=== PATIENT | male | born 1970 | race Caucasian/White ===

== ENCOUNTER 2024-07-29 19:43 | Day surgery (SDC) | payer BC, SELFPAY ==
[2024-07-29] VITALS (7 sets, daily range): BP systolic 158–177; BP diastolic 82–87; PULSE 91–98; RESP 16; TEMP 36.8–38.3; O2SAT 95–100; BMI 28.9
--- NOTE | 2024-07-29 20:29 | ED_ITS ---
HPI - General Adult General Chief complaint: Unspecified Complaint, Adult Stated complaint: difficulty swallowing Time Seen by Provider: 07/29/24 20:26 History of Present Illness HPI narrative: pt reports not being able to swallow. Reports neck pain, hurts when touch. Was able to eat last night. Progressively getting worse. Not able to eat or swallow. Ibuprofen taken this morning, 1 tablet and was not able to get anymore down. Pt reports no difficulty breathing. 53-year-old man here with concern of difficulty swallowing. Is also experiencing increasing pain even to light touch of the neck. Was on a flight today and in the airport with the sensation of tightness or difficulty swallowing he was not saying anything on the flight and then in the airport do had a take very tiny sips of orange juice. He is may be able to for stone small amount of sputum. Trying to take a drink though seems to go up now he says. Not had any fever. He does not really have a sore throat in the typical way either. In no concern of exposures. He does not think that he has got anything retained in the esophagus. Is not having trouble breathing. No allergies. It has been suggested that his voice is changed and now he sounds like Joseluis White. Related Data Home Medications ?Medication ?Instructions ?Recorded ?Confirmed No Known Home Medications 07/29/24 07/29/24 Allergies Allergy/AdvReac Type Severity Reaction Status Date / Time No Known Drug Allergies Allergy Verified 07/29/24 21:03 Review of Systems Status of ROS: Reports: 6 or more systems reviewed and unremarkable except as noted in History and below Exam Narrative: Exam Narrative: Deeper timbre voice. Thick. No stridor. Oropharyngeal exam is actually unremarkable. He opens the posterior oropharynx very wide. Epiglottis is not visualized on initial exam. No inflammation. No asymmetry. No swelling noted. He does have good range of motion with his neck though notes a general sense of tightness. Sensitive even to light touch in the scalene musculature bilaterally and about the trachea. Lungs are clear. Heart is in elevated rate with regular rhythm. No murmur rub or gallop. Skin is warm and dry without rash. Well- perfused. Apparent edema. Const: Vital Signs, click to edit/add: Vital Signs - 24 hr 07/29/24 19:47 07/29/24 21:45 07/29/24 22:42 Temperature 98.3 F 100.9 F H Pulse Rate 95 Pulse Rate [Left P ulse Oximeter] 98 95 Respiratory Rate 16 Blood Pressure Blood Pressure [Ri ght Upper Arm] 177/82 H Pulse Oximetry 98 95 100 Oxygen Delivery Me thod Room Air Room Air 07/29/24 22:45 07/29/24 22:49 Temperature Pulse Rate 95 91 Pulse Rate [Left P ulse Oximeter] Respiratory Rate Blood Pressure 158/87 H Blood Pressure [Ri ght Upper Arm] Pulse Oximetry 100 100 Oxygen Delivery Me thod Documenting provider has reviewed patient's vital signs: yes Course Vital Signs Vital signs: Initial Vital Signs Temperature 98.3 F 07/29/24 19:47 Temperature Source Temporal Artery Scan 07/29/24 19:47 Pulse Rate 98 07/29/24 19:47 Pulse Rhythm Regular 07/29/24 19:47 Respiratory Rate 16 07/29/24 19:47 Blood Pressure 177/82 H 07/29/24 19:47 Blood Pressure Mean 113 H 07/29/24 19:47 Blood Pressure Position Sitting 07/29/24 19:47 Pulse Oximetry 98 07/29/24 19:47 Oxygen Delivery Method Room Air 07/29/24 19:47 Vital Signs Temperature 98.3 F 07/29/24 19:47 Pulse Rate 98 07/29/24 19:47 Respiratory Rate 16 07/29/24 19:47 Blood Pressure 177/82 H 07/29/24 19:47 Pulse Oximetry 98 07/29/24 19:47 Oxygen Delivery Method Room Air 07/29/24 19:47 Temperature 100.9 F H 07/29/24 21:45 Pulse Rate 91 07/29/24 22:49 Respiratory Rate 16 07/29/24 19:47 Blood Pressure 158/87 H 07/29/24 22:49 Pulse Oximetry 100 07/29/24 22:49 Oxygen Delivery Method Room Air 07/29/24 21:45 Medications Administered Medications: Discontinued Medications Generic Name Dose Route Start Last Admin Trade Name Freq PRN Reason Stop Dose Admin Diphenhydramine HCl 50 mg 07/29/24 21:46 07/29/24 22:04 Diphenhydramine 50 Mg/Ml Inj IVP 07/29/24 21:47 50 mg ONCE ONE Administration Epinephrine 0.5 ml 07/29/24 21:47 07/29/24 22:16 Racepinephrine Hcl 0.5 Ml Vial.Neb NEB 07/29/24 21:48 0.5 ml ONCE ONE Administration Sodium Chloride 1,000 mls @ 1,000 mls/hr 07/29/24 20:47 07/29/24 21:47 0.9 % Sodium Chloride 1000 Ml IV 07/29/24 21:46 Infused .Q1H ONE Infusion Ampicillin Sodium/Sulbactam 100 mls @ 200 mls/hr 07/29/24 21:46 07/29/24 22:57 Sodium 3 gm/ Sodium Chloride IVPB 07/29/24 21:47 200 mls/hr ONCE ONE Administration Sodium Chloride 1,000 mls @ 1,000 mls/hr 07/29/24 21:48 07/29/24 22:46 0.9 % Sodium Chloride 1000 Ml IV 07/29/24 22:47 Infused .Q1H ONE Infusion Methylprednisolone Sodium Succinate 125 mg 07/29/24 21:46 07/29/24 22:04 Methylprednisolone Sod Succ 62.5 Mg/Ml (125) IVP 07/29/24 21:47 125 mg ONCE ONE Administration Medical Decision Making MDM Narrative Medical decision making narrative: My sense of this is seems to be less infectious in more just to some tight/has any musculature and now with a dysphagia of unclear etiology otherwise. Will need though to scan his neck looking for other etiology or certainly infection or masses can present atypically. Unclear whether not an allergy may have triggered this. Does not appear to be a foreign body issue. Did discuss initially with ENT. In agreement as above. Initiated on normal saline IV. Nothing for pain or nausea needed. COMPARISON: None available at this institution. FINDINGS: Extensive, severe thickening of the epiglottis and supraglottic larynx. There is moderate mass effect upon the upper airway. No drainable fluid collection identified. The nasopharynx and oropharynx appear unremarkable. The parotid and submandibular glands appear unremarkable. The thyroid gland is normal. Enlarged cervical chain lymph nodes, presumed reactive. The visualized major vascular structures appear intact. The visualized intracranial components appear grossly intact. Visualized orbits and contents appear unremarkable. The paranasal sinuses are clear as visualized. Lung apices are clear. Moderate spondylosis of the cervical spine. IMPRESSION: 1. Severe supraglottitis, with moderate mass effect upon the upper airway. 2. No discrete drainable fluid collection. 3. Presumed reactive cervical chain lymphadenopathy. Labs are somewhat reassuring though with white count at 13.3 and the CRP of 4.4. Reviewed CT images myself and discussed with ENT. Will be assembling team to take over his airway with concern of pending further compromise. Will also need a secure airway for transport. Will not be able to care for severe epiglottitis at this facility. Remains vitally well. Temperature though has gone up to 100.9. Does report feeling a little bit better with IV fluids, received make epinephrine, Solu-Medrol, diphenhydramine. Anesthesia support is already present. ENT on the way. We have obtained acceptance to an ICU bed at [facility]. Following intubation will be transferred. To OR for cares at this time Lab Data Lab results reviewed: Yes I reviewed the patient's lab results Labs: Lab Results 07/29/24 Range/Units 21:00 WBC 13.33 H (4.50-11.00) K/uL RBC 5.02 (4.30-5.90) m/uL Hgb 15.4 (13.5-17.5) gm/dL Hct 44.2 (37.0-53.0) % MCV 88 (80-100) fL MCH 31 (26-34) pg MCHC 35 (32-36) gm/dL RDW Coeff of Conor 12.1 (11.5-15.5) % Plt Count 157 (140-440) K/uL Neut % (Auto) 86.2 H (42.0-72.0) % Lymph % (Auto) 6.9 L (20-44) % Woodward % (Auto) 6.5 (0.0-11.0) % Eos % (Auto) 0.1 (0.0-7.0) % Baso % (Auto) 0.1 (0.0-3.0) % Neut # (Auto) 11.50 H (1.7-7.0) K/uL Lymph # (Auto) 0.90 (0.90-2.90) K/uL Woodward # (Auto) 0.90 (0.00-0.90) K/UL Eos # (Auto) 0.00 (0.00-0.50) K/uL Baso # (Auto) 0.00 (0.00-0.30) K/uL Abs Immat Gran (auto) 0.00 (0.00-0.30) K/uL Imm/Tot Granulo (auto) 0.2 % C-Reactive Protein 4.4 H (0.5-1.0) mg/dL Group A Strep DNA NOT DETECTED (Not Detectd) Discharge Plan Discharge Clinical Impression: Acute epiglottitis Patient Disposition: [facility] Discharge Location: [facility] Condition: Guarded
--- NOTE | 2024-07-29 20:47 | CRLHL7_ITS ---
For Patients: As a result of the Century Cures Act, medical imaging exams and procedure reports are released immediately into your electronic medical record. You may view this report before your referring provider. If you have questions, please contact your health care provider. INDICATION: Neck pain. Difficulty swallowing. TECHNIQUE: CT of the neck soft tissues performed with IV contrast. Contrast: 110 cc Isovue 370 COMPARISON: None available at this institution. FINDINGS: Extensive, severe thickening of the epiglottis and supraglottic larynx. There is moderate mass effect upon the upper airway. No drainable fluid collection identified. The nasopharynx and oropharynx appear unremarkable. The parotid and submandibular glands appear unremarkable. The thyroid gland is normal. Enlarged cervical chain lymph nodes, presumed reactive. The visualized major vascular structures appear intact. The visualized intracranial components appear grossly intact. Visualized orbits and contents appear unremarkable. The paranasal sinuses are clear as visualized. Lung apices are clear. Moderate spondylosis of the cervical spine. IMPRESSION: 1. Severe supraglottitis, with moderate mass effect upon the upper airway. 2. No discrete drainable fluid collection. 3. Presumed reactive cervical chain lymphadenopathy. Please note that all CT scans at this facility use dose modulation, iterative reconstruction, and/or weight-based dosing when appropriate to reduce radiation dose to as low as reasonably achievable. Dictated by Cesar Solomon MD @ 07/29/2024 9:30:34 PM (Electronically Signed)
[2024-07-29 21:09] LABS: Basophils Percent Auto 0.1 % (0.0-3.0); Eosinophils Percent Auto 0.1 % (0.0-7.0); Hematocrit 44.2 % (37.0-53.0); Hemoglobin* 15.4 gm/dL (13.5-17.5); Immature Granulocytes Pct Auto 0.2 %; Lymphocytes Percent Auto 6.9 % (20-44); Mean Corpuscular HGB Conc 35 gm/dL (32-36); Mean Corpuscular Hemoglobin 31 pg (26-34); Mean Corpuscular Volume 88 fL (80-100); Monocytes Percent Auto 6.5 % (0.0-11.0); Neutrophils Percent Auto 86.2 % (42.0-72.0); Platelet Count* 157 K/uL (140-440); RDW Coefficient of Variation % 12.1 % (11.5-15.5); Red Blood Count 5.02 m/uL (4.30-5.90); White Blood Count* 13.33 K/uL (4.50-11.00)
[2024-07-29 21:10] LABS: Slide Review Reflex No
[2024-07-29] MEDS: 0.9 % SODIUM CHLORIDE 1000 ml 1,000 ML IV ×2 (21:10→21:30)
[2024-07-29 21:33] LABS: Strep A DNA Probe* NOT DETECTED (Not Detectd)
[2024-07-29 21:34] LABS: C Reactive Protein* 4.4 mg/dL (0.5-1.0)
[2024-07-29] MEDS: METHYLPREDNISOLONE SOD SUCC 62.5 MG/ML (125) 125 MG IVP (22:04)
[2024-07-29] MEDS: diphenhydrAMINE 50 MG/ML inj IVP (22:04)
[2024-07-29] MEDS: RACEPINEPHRINE HCL 0.5 ML VIAL.NEB NEB (22:16)
[2024-07-29] MEDS: AMPICILLIN/SULBACTAM 3 GM in 0.9 % SODIUM CHLORIDE Mini-bag 100 ML IVPB (22:57)
--- NOTE | 2024-07-30 | CRLHL7_ITS ---
For Patients: As a result of the Century Cures Act, medical imaging exams and procedure reports are released immediately into your electronic medical record. You may view this report before your referring provider. If you have questions, please contact your health care provider. INDICATION: Emergent intubation placement TECHNIQUE: Chest radiograph 1 view COMPARISON: None FINDINGS: The sensitivity and specificity of the exam are moderately limited by the patient`s body habitus. Mediastinum: The endotracheal tube tip is positioned 7.2 cm from the manjit. The heart silhouette is normal in size and morphology. Lung: Mild pulmonary vascular congestion and perihilar atelectasis is noted. No sign of pleural effusion seen. No pneumothorax is identified. Bone and Soft tissue: Unremarkable for age. IMPRESSION: 1. Mild pulmonary vascular congestion and perihilar atelectasis is noted. Dictated by Gilbert Whitley MD @ 07/30/2024 12:46:33 AM Dictated by: Gilbert Whitley MD @ 07/30/2024 00:46:37 (Electronically Signed)
--- NOTE | 2024-07-30 00:41 | PM.ANBPRC ---
Meds Home Medications and Allergies Home Medications ?Medication ?Instructions ?Recorded ?Confirmed ?Type No Known Home Medications 07/29/24 07/29/24 History Allergies Allergy/AdvReac Type Severity Reaction Status Date / Time No Known Drug Allergies Allergy Verified 07/29/24 21:03 Results Labs Labs: Laboratory Results - last 24 hr 07/29/24 21:00 WBC 13.33 H RBC 5.02 Hgb 15.4 Hct 44.2 MCV 88 MCH 31 MCHC 35 RDW Coeff of Conor 12.1 Plt Count 157 Neut % (Auto) 86.2 H Lymph % (Auto) 6.9 L Dickey % (Auto) 6.5 Eos % (Auto) 0.1 Baso % (Auto) 0.1 Neut # (Auto) 11.50 H Lymph # (Auto) 0.90 Dickey # (Auto) 0.90 Eos # (Auto) 0.00 Baso # (Auto) 0.00 Abs Immat Gran (auto) 0.00 Imm/Tot Granulo (auto) 0.2 C-Reactive Protein 4.4 H Group A Strep DNA NOT DETECTED Vital Signs Vital Signs: Last Vital Signs Temp 100.9 F H 07/29/24 21:45 Pulse 93 07/29/24 23:00 Resp 16 07/29/24 19:47 BP 158/87 H 07/29/24 22:49 Pulse Ox 100 07/29/24 23:00 O2 Del Method Non Rebreather Mask 07/29/24 23:00 O2 Flow Rate 10 07/29/24 23:00 Weight: 102.058 kg Height: 187.96 cm Anesthesia Procedures Airway Patient Location: [place] Start Time: 23:10 Stop Time: 00:14 Start Date: 07/29/24 Stop Date: 07/30/24 GASTROENTEROLOGY NURSE: Sathish Rushing CRNA Other Anesthesia Staff: James Kwong CRNA Performed by: NORY Preanesthetic Checklist: IV checked, monitors and equipment checked and pre-op evaluation Difficult Airway: Yes (acute epiglottitis ) Indications for Airway Management: airway protection Spontaneous Ventilation: present Sedation Level: moderate (conscious sedation) Preoxygenated: Yes Patient Position: ramp Mask Difficulty Assessment: 0 - not attempted Final Airway Details: Dr. Mooney, ENT at bedside in OR. 6.0 ETT secured with Glidescope size 4 blade. ETT securement device in place. Transport took pt directly from [place] to [facility]. VSS upon transfer; pt transferred on ventilator (TV 550, RR 25, equal chest rise) Final Airway Type: endotracheal airway Number of Attempts at Approach: 2 Number of Other Approaches Attempted: 1 Dentition Unchanged: No
--- NOTE | 2024-07-30 00:51 | P.ANES_ITS ---
Anesthesia Charges Start Date/Time Anesthesia Start Date: 07/29/24 Anesthesia Start Time: 23:10 Stop Date/Time Anesthesia Stop Date: 07/30/24 Anesthesia Stop Time: 00:14 Summary Emergency: BPM SOLUTION ARCHITECT
--- OUTSIDE RECORDS SUMMARY | 2024-09-22 11:46 | XMS_ITS | Clinical Summary ---
Author Organization [facility] [place], [place] [address] Care Team Providers Care Senior Manager Quality Assurance Name Role Phone Pcp, No Primary Care Provider Unavailabl e Allergies No known active allergies Medications No known medications Encounters Date Type Department Care Team Description 07/29/2024 6:00 PM CDT Office Visit [facility] [id number] [place] [phone] Throat Problem; Dysphagia 07/29/2024 Travel from [...] age to complete this topic Care Teams Senior Manager Quality Assurance Relationship Specialty Start Date End Date Pcp, No . PCP - General 07/29/24
--- OUTSIDE RECORDS SUMMARY | 2024-09-22 11:46 | XMS_ITS | Continuity of Care Document ---
Author Organization [facility] Address [address] [place] [address] Phone Care Team Providers Care Human Resource Intern Name Role Phone No Information Unavailable Unavailable Procedures Procedure Date Office/outpatient visit,[facility] 2008 Advance Directives Directive Yes / No Effective Date File Name No Information Encounters Encounter Description Practice Location Reason(s) For Visit Diagnoses Date Provider Providers Copied on Encounter Z [facility] [place], [address] [place] [address], [address], tel:[phone] No Information 9 No Information Office[facility]pa [facility]ient [facility], [address] [place] [address], [address], [place] tel:[phone] [facility] No Information 9 José Story. [facility] [place], [address], [address], [place], [place], [id number], [place]. tel:[phone] Referring Provider: Jcarlos Le, [facility] [address] [place] [address], [address]. tel:[phone] Family History Family Member Type Diagnosis Age At Onset No Information Payers Payer name Insurance type Covered constitution party ID Authoriza tiortega(s) [facility] [id number] Social History Type Description Quantity Date Captured [...]
== END 2024-07-30 00:16 | disposition other institution (70) ==
LOC: ED 23:01 → SS 09-22 11:43
PROVIDERS: Emergency Provider Family Medicine; PCP Family Medicine; Visit Provider Otolaryngology
PROC: (CPT 31526; principal; 2024-07-29 23:30)
DX: J05.11 Acute epiglottitis with obstruction (principal)
CPT/HCPCS: 31526; 31500; 36415; 70491; 71045; 85025; 86140; 87040; 87070; 87075; 87651; 94640; 96365; 96375; 99140; 99284; 99285; 99291; J0295; J1200; J2250; J2704; J2919; J3010; J3490; J7030; Q9967

== ENCOUNTER 2024-08-06 16:15 | Outpatient (CLI) | payer BC, SELFPAY ==
--- OUTSIDE RECORDS SUMMARY | 2024-08-09 18:25 | XMS_ITS | Clinical Summary ---
Author Organization [facility] Address [place], [place] [address] Care Team Providers Care Destination Sign Repairer Name Role Phone Pcp, No Primary Care Provider Unavailabl e Allergies No known active allergies Medications No known medications Encounters Date Type Department Care Team Description 07/29/2024 6:00 PM CDT Office Visit [facility] [address] [phone] Throat Problem; Dysphagia 07/29/2024 Travel from Last 3 Months Social History Tobacco Use Types Packs/Day Years Used Date Smoking Tobacco: Never Smokeless Tobacco: Never Tobacco Cessation:Counseling Given: Not Answered Sex and Gender Information Value Date Recorded Sex Assigned at Not on file Gender Identity Not on file Sexual Orientation Not on file Travel History Travel Start Travel [place] 07/26/2024 07/29/2024 Obstetrics History Last Filed Vital Signs Vital Sign Reading Time Taken Comments Blood Pressure 155/89 07/29/2024 6:57 PM CDT Pulse 98 07/29/2024 6:57 PM CDT Temperature 36.8 ??C (98.3 ??F) 07/29/2024 6:57 PM CD T Respiratory Rate 16 07/29/2024 6:57 PM CDT Oxygen Saturation 99% 07/29/2024 6:57 PM CDT Inhaled Oxygen Concentration - - Weight - - Height - - Body Mass Index - - Plan of Treatment Health Maintenance Due Date Last Done Comments Tdap 1983 Depression screening for age 12+ 1984 HIV for age 15-65 1987 BMI (ht and wt on same day) for age 18+ 1990 Hepatitis C screening for ag e 18-79 1990 Tetanus booster 1992 Colonoscopy through age 75 2017 Lipids for age 45-75 2017 Zoster (shingles) series for age 50+ (1 of 2) 2022 COVID-19 vaccine series ( - 2023- season) 2024 11/16/2021, 03/03/2021, 02/11/2021 Influenza for age 50-64 07/12/2024 Pneumococcal series for age 6-64 Aged Out No longer eligible b ased on patient's age to complete this topic Care Teams Destination Sign Repairer Relationship Specialty Start Date End Date Pcp, No . PCP - General 07/29/24
--- OUTSIDE RECORDS SUMMARY | 2024-08-09 18:25 | XMS_ITS | Continuity of Care Document ---
Author Organization [facility] Address [address] [place] [address] Phone Care Team Providers Care Facilities Coordinator Name Role Phone No Information Unavailable Unavailable Procedures Procedure Date Office/outpatient visit,[facility] 2008 Advance Directives Directive Yes / No Effective Date File Name No Information Encounters Encounter Description Practice Location Reason(s) For Visit Diagnoses Date Provider Providers Copied on Encounter Z [facility] [place], [address] [place] [address], [address], tel:[phone] No Information 9 No Information Office[facility]pa [facility], [address] [place] [address], [address], [place] tel:[phone] [facility] No Information 9 Joés Story. [facility] [place], [address], [address], [place], [place], [id number], [place]. tel:[phone] Referring Provider: Jcarlos Le, [facility] [address] [place] [address], [address]. tel:[phone] Family History Family Member Type Diagnosis Age At Onset No Information Payers Payer name Insurance type Covered constitution party ID Authoriza tiortega(s) [facility] [id number] Social History Type Description Quantity Date Captured Comments Sex Male Smoking Status No Information Chief Complaint And Reason For Visit No Information Reason For Referral Reason For Referral No Information History Of Present Illness Encounter Date Complaint History Of Prese nt Illness No Information Functional Status Date Functional Assessmen t No Information Instructions Date Instruction Additional Infor mation No Information Assessments Type Assessment Date No Information Patient Care Teams Name Effective Dates (start - stop) Status Members No Information
== END 2024-08-06 16:16 | disposition home or self-care (01) ==
LOC: NFLDREF 08-09 18:23
PROVIDERS: PCP Family Medicine; Referring Provider Family Medicine; Visit Provider Internal Medicine
DX: N39.0 Urinary tract infection, site not specified (principal)
CPT/HCPCS: 87086

== ENCOUNTER 2024-09-10 15:57 | Outpatient (CLI) | payer BC, SELFPAY ==
--- OUTSIDE RECORDS SUMMARY | 2024-09-10 16:02 | XMS_ITS | Clinical Summary ---
Author Organization [facility] Address [place], [place] [address] Care Team Providers Care Resident Care Spec Name Role Phone Pcp, No Primary Care Provider Unavailabl e Allergies No known active allergies Medications No known medications Encounters Date Type Department Care Team Description 07/29/2024 6:00 PM CDT Office Visit [facility] [id number] [place] [phone] Throat Problem; Dysphagia 07/29/2024 Travel from Last 3 Months Social History Tobacco Use Types Packs/Day Years Used Date Smoking Tobacco: Never Smokeless Tobacco: Never Tobacco Cessation:Counseling Given: Not Answered Sex and Gender Information Value Date Recorded Sex Assigned at Not on file Gender Identity Not on file Sexual Orientation Not on file Obstetrics History Last Filed Vital Signs Vital [...] (1 of 2) 2022 COVID-19 vaccine series (2023- season) 2024 11/16/2021, 03/03/2021, 02/11/2021 Influenza for age 50-64 07/12/2024 Pneumococcal series for age 6-64 Aged Out No longer eligible b ased on patient's age to complete this topic Care Teams Resident Care Spec Relationship Specialty Start Date End Date Pcp, No . PCP - General 07/29/24
--- OUTSIDE RECORDS SUMMARY | 2024-09-10 16:02 | XMS_ITS | Continuity of Care Document ---
Author Organization [facility] Address [address] [place] [address] Phone Care Team Providers Care Physical Therapy Professor Name Role Phone No Information Unavailable Unavailable Procedures Procedure Date Office[facility]outpatient visit,[facility] 2008 Advance Directives Directive Yes / No Effective Date File Name No Information Encounters Encounter Description Practice Location Reason(s) For Visit Diagnoses Date Provider Providers Copied on Encounter Z [facility] [place], [address] [place] [address], [address], tel:[phone] No Information 9 No Information Office/outpa tient visit,[facility], [address] [place] [address], [address], [place] tel:[phone] [facility] No Information 9 José Story. [facility] [place], [address], [address], [place], [place], [id number], [place]. tel:[phone] Referring Provider: Jcarlos Le, [facility] [address] [place] [address], [address]. tel:[phone] Family History Family Member Type Diagnosis Age At Onset No Information Payers Payer name Insurance type Covered green party ID Authoriza tiortega(s) [facility] [id number] Social History Type Description Quantity Date Captured [...]
== END 2024-09-10 15:58 | disposition home or self-care (01) ==
PROVIDERS: PCP Family Medicine; Visit Provider Internal Medicine
DX: Z13.220 Encounter for screening for lipoid disorders (principal); Z13.228 Encounter for screening for other metabolic disorders; Z12.5 Encounter for screening for malignant neoplasm of prostate
CPT/HCPCS: 80048; 80061; G0103

== ENCOUNTER 2024-09-28 07:42 | Outpatient (CLI) | payer BC, SELFPAY ==
--- OUTSIDE RECORDS SUMMARY | 2024-09-28 07:45 | XMS_ITS | Clinical Summary ---
Author Organization [facility] Address [place], [place] [address] Care Team Providers Care Bale Piler Name Role Phone Pcp, No Primary Care Provider Unavailabl e Allergies No known active allergies Medications No known medications Encounters Date Type Department Care Team Description 07/29/2024 6:00 PM CDT Office Visit [facility] [address] [place] [phone] Throat Problem; Dysphagia 07/29/2024 Travel from [...] age to complete this topic Care Teams Bale Piler Relationship Specialty Start Date End Date Pcp, No . PCP - General 07/29/24
--- OUTSIDE RECORDS SUMMARY | 2024-09-28 07:45 | XMS_ITS | Continuity of Care Document ---
Author Organization [facility] Address [address] [place] [address] Phone Care Team Providers Care Software Support Representative Name Role Phone No Information Unavailable Unavailable Procedures Procedure Date Office/outpatient visit,[facility] 2008 Advance Directives Directive Yes / No Effective Date File Name No Information Encounters Encounter Description Practice Location Reason(s) For Visit Diagnoses Date Provider Providers Copied on Encounter [facility] [place], [address] [place] [address], [address], tel:[phone] No Information 9 No Information Office/outpa tient visit,[facility], [address] [place] [address], [id number], [place] tel:[phone] [facility] No Information 9 José Story. [facility] [place], [address], [address], [place], [place], [id number], [place]. tel:[phone] Referring Provider: Jcarlos Le, [facility] [address] [place] [address], [address]. tel:[phone] Family History Family Member Type Diagnosis Age At Onset No Information Payers Payer name Insurance type Covered green party ID Authoriza tiortega(s) [facility] [id number] Social History Type Description Quantity Date Captured [...]
--- NOTE | 2024-09-28 08:00 | CRLHL7_ITS ---
For Patients: As a result of the Century Cures Act, medical imaging exams and procedure reports are released immediately into your electronic medical record. You may view this report before your referring provider. If you have questions, please contact your health care provider. INDICATION Solitary pulmonary nodule. TECHNIQUE: Noncontrast CT images of the chest. COMPARISON: Chest radiographs 07/30/2024. FINDINGS: No focal consolidation, pleural effusion, or pneumothorax. Solid 5 mm left apical nodule (series 3 image 20). Heart size is normal. No pericardial effusion. No coronary atherosclerotic calcifications. No mediastinal or hilar lymphadenopathy. Limited images through the upper abdomen are unremarkable. Multilevel thoracic spondylosis. No aggressive osseous lesions. IMPRESSION: Small left apical pulmonary nodule. Follow-up chest CT could be considered in 12 months if patient has risk factors for malignancy. Please note that all CT scans at this facility use dose modulation, iterative reconstruction, and/or weight-based dosing when appropriate to reduce radiation dose to as low as reasonably achievable. Dictated by Geo Preciado MD @ 09/28/2024 10:05:53 AM (Electronically Signed)
== END 2024-09-28 07:43 | disposition home or self-care (01) ==
PROVIDERS: PCP Internal Medicine; Visit Provider Internal Medicine
DX: R91.1 Solitary pulmonary nodule (principal)
CPT/HCPCS: 71250